=== PATIENT | female | born 1985 | race African-American/Black ===

== ENCOUNTER 2018-08-28 11:25 | Inpatient (IN) | payer OTHER ==
[2018-08-28] MEDS: DEXTROSE 5%-LACTATED RINGERS 1,000 ML IV SCH (12:45)
[2018-08-28 12:59] LABS: BASO % 0.4 % (0-2.0); EOS % 0.2 % (0-4.5); HEMATOCRIT 39.2 % (32.4-45.2); LYMPH % 19.7 % (8-40); MCH 29.6 pg (25.7-33.7); MCHC 33.3 g/dl (32.0-36.0); MEAN PLT VOLUME 9.8 fl (7.5-11.1); MONO % 5.3 % (3.8-10.2); NEUT % 74.4 % (42.8-82.8); PLATELET COUNT 242 K/MM3 (134-434); RBC 4.41 M/mm3 (3.60-5.2); RDW 13.8 % (11.6-15.6); RETICULOCYTES 1.93 % (0.5-1.5); WHITE BLOOD COUNT 13.4 K/mm3 (4.0-10.0)
[2018-08-28 13:07] LABS: INR 0.93 (0.83-1.09)
[2018-08-28 13:10] LABS: ACTIVATED PTT 25.5 SECONDS (25.2-36.5)
[2018-08-28 13:19] LABS: ALBUMIN 3.3 g/dl (3.4-5.0); ALK PHOS 179 U/L (45-117); ANION GAP 9 MMOL/L (8-16); BILIRUBIN,TOTAL 0.8 mg/dL (0.2-1); BLOOD UREA NITROGEN 13 mg/dL (7-18); CALCIUM 9.7 mg/dL (8.5-10.1); CHLORIDE 104 mmol/L (98-107); CO2 22 mmol/L (21-32); CREATININE 0.9 mg/dL (0.55-1.3); GAMMA GLUTAMYL TRANSPEPTIDASE 17 U/L (5-85); GLUCOSE,RANDOM 63 mg/dL (74-106); POTASSIUM 4.4 mmol/L (3.5-5.1); SGOT/AST 23 U/L (15-37); SGPT/ALT 22 U/L (13-61); SODIUM 135 mmol/L (136-145); TOT PROT 7.6 g/dl (6.4-8.2); URIC ACID 5.3 mg/dL (2.6-7.2)
[2018-08-28] MEDS ORDERED: LABETALOL HCL 5 MG/1 ML (100MG/20 ML VIAL) IVPB ONE (13:45)
[2018-08-28 13:54] LABS: URINE APPEARANCE CLEAR; URINE BILIRUBIN NEGATIVE (<2.0 mg/dL); URINE COLOR YELLOW; URINE GLUCOSE (UA) NEGATIVE (NEGATIVE); URINE KETONE 2+ (NEGATIVE); URINE LEUK ESTERASE NEGATIVE (NEGATIVE); URINE NITRITE NEGATIVE (NEGATIVE); URINE PROTEIN 1+ (NEGATIVE); URINE UROBILINOGEN NEGATIVE mg/dL (0.2-1.0)
[2018-08-28 13:59] LABS: EPI CELLS RARE /HPF (FEW); URINE MUCUS RARE
[2018-08-28] MEDS ORDERED: LABETALOL HCL 200 MG TABLET (FP) ONE (15:08)
[2018-08-28] MEDS ORDERED: LABETALOL HCL 200 MG TABLET (FP) PO ONE (16:00)
[2018-08-28] MEDS ORDERED: BUTORPHANOL TARTRATE 1 MG/ML VIAL IVPUSH ONE ×2 (16:24→22:41)
[2018-08-28 16:25] VITALS: BMI 24.7
[2018-08-28] MEDS ORDERED: PROMETHAZINE HCL 25 MG/1 ML VIAL IVPUSH ONE (16:26)
--- NOTE | 2018-08-28 16:35 | HP ---
Past Medical History - Primary Care Physician PCP:: Pedro Rivas - Admission Chief Complaint: 40 weeks, early labor, CHT History Source: Patient Limitations to Obtaining History: No Limitations - Past Medical History ...: 1 ...Para: 0 ...Term: 0 ...: 0 ...Spon : 0 ...Induced : 0 ...Multiple Gestation: 0 ...LMP: 11/16/17 ... Weeks Gestation by Dates: 40.5 ...EDC by Dates: 08/23/18 ...EDC by Sono: 08/30/18 - Past Surgical History Hx Myomectomy: No Hx Transabdominal Cerclage: No - Smoking History Smoking history: Never smoked Have you smoked in the past 12 months: No - Alcohol/Substance Use Hx Alcohol Use: No - Social History Usual Living Arrangement: Yes: With Spouse History of Recent Travel: No Home Medications - Allergies Allergies/Adverse Reactions: Allergies Allergy/AdvReac Type Severity Reaction Status Date / Time bee venom protein (honey bee) Allergy Verified 08/28/18 12:57 - Home Medications Home Medications: Ambulatory Orders Labetalol HCl [Normodyne -] 100 mg PO BID 08/28/18 Vitamins (Sjr) - 1 tab PO DAILY 08/28/18 Review of Systems - Review of Systems Constitutional: reports: No Symptoms Eyes: reports: No Symptoms HENT: reports: No Symptoms Neck: reports: No Symptoms Cardiovascular: reports: No Symptoms Respiratory: reports: No Symptoms Gastrointestinal: reports: No Symptoms Genitourinary: reports: No Symptoms Breasts: reports: No Symptoms Reported Musculoskeletal: reports: No Symptoms Integumentary: reports: No Symptoms Neurological: reports: No Symptoms Endocrine: reports: No Symptoms Hematology/Lymphatic: reports: No Symptoms Psychiatric: reports: No Symptoms Physical Exam - Maternity Vital Signs: Vital Signs Temperature 98.3 F 08/28/18 12:00 Pulse Rate 73 08/28/18 16:00 Respiratory Rate 20 08/28/18 16:00 Blood Pressure 136/84 08/28/18 16:00 O2 Sat by Pulse Oximetry (%) Constitutional: Yes: Well Nourished, No Distress, Calm Eyes: Yes: WNL, Conjunctiva Clear, EOM Intact HENT: Yes: WNL, Atraumatic, Normocephalic Neck: Yes: WNL, Supple, Trachea Midline Cardiovascular: Yes: WNL, Regular Rate and Rhythm Breast(s): Yes: WNL - Abdominal Exam/OB Fundal Height: 38 Number of Fetuses: Single Presentation: Vertex Contractions: Yes Regularity: Irregular Intensity: Mod/Strong Monitor Mode: External Heart Rate Location: [facility] Category: I Accelerations: Uniform Decelerations: None - Vaginal Exam/OB Vaginal Bleediing: No Speculum Exam: No Dilatation (cm): closed Effacement (%): 50 Amniotic Membrane Status: Intact Presentation: Vertex/Position Station: -3 - Physical Exam Musculoskeletal: Yes: WNL Edema: LLE: Trace, RLE: Trace Deep Tendon Reflex Grade: Normal +2 ...Motor Strength: WNL Psychiatric: Yes: WNL - Labs Lab Results: CBC, BMP 08/28/18 12:23 08/28/18 12:23 Hemorrhage Risk Assessment - Risk Factors High Risk Factors: Yes: None Risk Score: 0 Risk Level: Low Risk Problem List - Problems (1) 40 weeks gestation of Code(s): Z3A.40 - 40 WEEKS GESTATION OF (2) Chronic hypertension affecting Code(s): O10.919 - UNSP PRE-EXISTING HTN COMP , UNSP TRIMESTER (3) First stage of labor established Code(s): [id number] - Assessment/Plan plan admit,monitor BP, r/o superimposed PIH uncontrolled htn, patient has not been taking her labeatalol for serval days, tx HTN with iv labetalol PRN, if not in labor will induce in view of uncontrolled HTN
[2018-08-28] MEDS ORDERED: TUBERCULIN PPD 5 TU/0.1ML SYRINGE (IN PATIENT USE ONLY) ID ONE (16:45)
--- NOTE | 2018-08-28 17:57 | PN ---
Progress Note (short form) - Note Progress Note: BP 134/88, c/o contraction, no headache, blurred vision plan cont, monitor BP , when stable will starat pitocin risks discussed , ulternatives c/s discussed Problem List - Problems (1) 40 weeks gestation of Code(s): Z3A.40 - 40 WEEKS GESTATION OF (2) Chronic hypertension affecting Code(s): O10.919 - UNSP PRE-EXISTING HTN COMP , UNSP TRIMESTER (3) First stage of labor established Code(s): [id number] -
[2018-08-28] MEDS ORDERED: BUTORPHANOL TARTRATE 1 MG/ML VIAL ONE (18:03)
[2018-08-28] MEDS ORDERED: PROMETHAZINE HCL 25 MG/1 ML VIAL ONE (18:04)
[2018-08-28] MEDS ORDERED: LABETALOL HCL 200 MG TABLET (FP) PO SCH (22:00)
[2018-08-28] MEDS ORDERED: DINOPROSTONE 10 MG VAGINAL SUPPOSITORY VG ONE (22:39)
--- NOTE | 2018-08-28 22:39 | PN ---
Progress Note (short form) - Note Progress Note: bp 140/94 , asymptomatic , irregular contraction, cx 1 cm 70 vx -2 mi, fhr cat 1 , cervidil discussed , risks and benefit explained , agreed to have cervidil cervidil inserted Problem List - Problems (1) 40 weeks gestation of Code(s): Z3A.40 - 40 WEEKS GESTATION OF (2) Chronic hypertension affecting Code(s): O10.919 - UNSP PRE-EXISTING HTN COMP , UNSP TRIMESTER (3) First stage of labor established Code(s): [id number] -
[2018-08-28] MEDS ORDERED: PROMETHAZINE HCL 25 MG/1 ML VIAL IVPB ONE (22:41)
[2018-08-28] MEDS ORDERED: AMPICILLIN - 2 GM in SODIUM CHLORIDE 100 ML IVPB ONE (22:42)
--- NOTE | 2018-08-28 23:54 | PN ---
Progress Note (short form) - Note Progress Note: has variable dece with each contraction, cervidil removed , advised c/s rba discussed Problem List - Problems (1) 40 weeks gestation of Code(s): Z3A.40 - 40 WEEKS GESTATION OF (2) Chronic hypertension affecting Code(s): O10.919 - UNSP PRE-EXISTING HTN COMP , UNSP TRIMESTER (3) First stage of labor established Code(s): [id number] -
[2018-08-29] MEDS ORDERED: ONDANSETRON 4 MG/2 ML VIAL IVPUSH PRN (00:05)
[2018-08-29] MEDS ORDERED: morphine SULFATE/Preservative Free 0.5 MG/ML (1cc Syringe) ONE (00:11)
[2018-08-29] MEDS ORDERED: ceFAZolin SODIUM 1 GM VIAL ONE (00:17)
[2018-08-29] MEDS ORDERED: SODIUM CHLORIDE 0.9% P/F 10 ML VIAL IJ ONE (00:17)
[2018-08-29] MEDS ORDERED: KETOROLAC TROMETHAMINE 30 MG/1 ML VIAL ONE (00:18)
[2018-08-29] MEDS ORDERED: METHYLERGONOVINE MALEATE 0.2 MG/1 ML AMP IM PRN ×2 (00:28→23:21)
[2018-08-29] MEDS ORDERED: oxyCODONE HCL 5 MG TABLET PO PRN ×2 (00:28)
[2018-08-29] MEDS ORDERED: IBUPROFEN 600 MG TABLET (FP) PO PRN (00:28)
[2018-08-29] MEDS ORDERED: IBUPROFEN 800 MG/8 ML IJ IVPB PRN (00:28)
[2018-08-29] MEDS ORDERED: WITCH HAZEL 50% (TUCKS) 40 PAD/JAR PAD TP PRN (00:28)
[2018-08-29] MEDS ORDERED: SIMETHICONE 80 MG TAB.CHEW (FP) PO PRN (00:28)
[2018-08-29] MEDS ORDERED: BENZOCAINE 28 GM HEMORRHOIDAL OINTMENT PR PRN (00:28)
[2018-08-29] MEDS ORDERED: diphenhydrAMINE HCL 25 MG CAPSULE (FP) PO PRN (00:28)
[2018-08-29] MEDS ORDERED: BENZOCAINE 20% 57 GM BOTTLE TP PRN (00:28)
[2018-08-29] MEDS ORDERED: OXYTOCIN 10 UNITS/ML VIAL ONE (00:29)
[2018-08-29] MEDS ORDERED: OXYTOCIN 20 UNITS in 0.9% NS 20 UNIT/1,000 ML INFUS.BAG IV SCH (00:30)
[2018-08-29] MEDS ORDERED: DEXTROSE 5%-LACTATED RINGERS 1,000 ML IV SCH (00:30)
[2018-08-29] MEDS ORDERED: CEFAZOLIN 1 GM/D5W 50 ML IVPB SCH (02:00)
[2018-08-29] MEDS ORDERED: OXYTOCIN 20 UNITS in 0.9% NS 20 UNIT/1,000 ML INFUS.BAG IV ONE (02:17)
[2018-08-29] MEDS ORDERED: AMPICILLIN - 1 GM in SODIUM CHLORIDE 100 ML IVPB SCH (03:45)
[2018-08-29] MEDS: LABETALOL HCL 200 MG TABLET (FP) PO SCH ×3 (06:13→22:07)
[2018-08-29] MEDS: DEXTROSE 5%-LACTATED RINGERS 1,000 ML IV SCH ×2 (07:43→15:52)
--- NOTE | 2018-08-29 07:46 | OP ---
Operative Note - Note: Operative Date: 08/29/18 Pre-Operative Diagnosis: CHT, uncontrolled, fhr cat 2 tracing Operation: primary LST c/s Findings: live baby boy, RROT, cord around neck times 3, 8/9 Surgeon: Pedro Rivas Anesthesia: Spinal Specimens Removed: placenta Estimated Blood Loss (mls): 500 Operative Report Dictated: Yes
[2018-08-29] MEDS ORDERED: BENZOCAINE 28 GM HEMORRHOIDAL OINTMENT TP PRN (14:24)
[2018-08-29] MEDS: ACETAMINOPHEN 1000 MG/100 ML VIAL (NON FORMULARY) IVPB PRN ×2 (16:33→22:08)
--- NOTE | 2018-08-29 16:49 | CIRC ---
Circumcision Note Pediatric Clearance: Yes Surgeon: Pedro Rivas Informed Consent: Yes Instruments: 1.1 Gumco Local Anesthesia: Lidocaine 1% 1cc subcutaneously: Yes Complications: None Intervention: None Estimated Blood Loss (mLs): 1 Specimens Removed: foreskin Post-procedure diagnosis: Post Circumcision
--- NOTE | 2018-08-29 21:29 | OP ---
DATE OF OPERATION: 08/29/2018 PREOPERATIVE DIAGNOSES: , 38 weeks; chronic hypertensive, uncontrolled; Cervidil induction; and persistent variable decelerations and nonreassuring heart rate. POSTOPERATIVE DIAGNOSES: , 38 weeks; chronic hypertensive, uncontrolled; Cervidil induction; and persistent variable decelerations and nonreassuring heart rate. PROCEDURE: Primary low-segment transverse section. SURGEON: Aura Rivas MD POISER BALANCE: TANNA Macias ANESTHESIA: Spinal. ANESTHESIOLOGIST: LUISANA Carlton ESTIMATED BLOOD LOSS: 500 mL FINDING: A live baby boy, ROT position, cord around the neck x3, Apgars 8 and 9. OPERATING COURSE: Patient was taken to the operating room. Under adequate spinal anesthesia, abdomen and perineum were prepped and draped. Pfannenstiel abdominal skin incision was made. Abdominal wall was cut layer by layer until peritoneum was exposed and incised. Upon entering the abdominal cavity, the lower uterine segment was identified and uterovesical fold of peritoneum established. Bladder was pushed down. Then, with the lower blade of the Octavia retractor in the pelvis, a low transverse uterine incision was made. Incision extended laterally. Amniotic sac was entered, clear fluid. Head delivered. Nasopharynx was suctioned. There was a tight cord around the neck x3, which was reduced prior to delivery of the baby's shoulder. A live baby boy was delivered without any difficulty. Placenta was delivered manually. Then, the uterine cavity was cleaned of all remaining tissues. Uterine incision was closed in 3 layers, first layer with 0 Vicryl continuous suture, the second layer with 0 Biosyn continuous suture, imbricating the first layer. Bladder flap was closed with 0 Biosyn continuous suture. Both tubes and ovaries were checked, were normal. No active bleeding was seen. All the lap packs, sponge, and instrument counts were correct. Then, peritoneum was closed with 0 Biosyn continuous suture. Muscles were brought together with interrupted suture of 0 Biosyn. Fascia was closed with 0 Biosyn continuous suture, subcutaneous fat with interrupted suture of 0 Biosyn, and the skin was closed with 4-0 Biosyn continuous suture. Patient tolerated the procedure well, left the OR in good condition. AURA RIVAS M.D. [id number]
[2018-08-30] MEDS ORDERED: BISACODYL 10 MG SUPP.RECT PR PRN (00:28)
[2018-08-30] MEDS: LABETALOL HCL 200 MG TABLET (FP) PO SCH ×3 (05:54→22:29)
[2018-08-30] MEDS: ACETAMINOPHEN 325 MG TABLET (FP) PO PRN ×5 (05:54→22:29)
[2018-08-30] MEDS: SIMETHICONE 80 MG TAB.CHEW (FP) PO PRN ×5 (05:54→22:29)
[2018-08-30] MEDS: oxyCODONE HCL 5 MG TABLET PO PRN ×5 (05:55→22:30)
[2018-08-30] MEDS ORDERED: BENZOCAINE 20% 57 GM BOTTLE TP PRN (07:35)
[2018-08-30 07:42] LABS: BASO % 0.5 % (0-2.0); EOS % 0.3 % (0-4.5); HEMATOCRIT 29.4 % (32.4-45.2); HEMOGLOBIN 9.8 GM/dL (10.7-15.3); LYMPH % 14.8 % (8-40); MCH 29.7 pg (25.7-33.7); MCHC 33.2 g/dl (32.0-36.0); MEAN CELL VOLUME 89.5 fl (80-96); MEAN PLT VOLUME 8.9 fl (7.5-11.1); MONO % 5.2 % (3.8-10.2); NEUT % 79.2 % (42.8-82.8); PLATELET COUNT 176 K/MM3 (134-434); RBC 3.29 M/mm3 (3.60-5.2); RDW 13.8 % (11.6-15.6); WHITE BLOOD COUNT 17.8 K/mm3 (4.0-10.0)
[2018-08-30] MEDS: PHENYLEPH/MINERAL OIL/PETROLAT 28 GM OINTMENT RC SCH ×2 (07:49→22:35)
[2018-08-30] MEDS: ENOXAPARIN NA (PORCINE) 40 MG/0.4 ML DISP.SYRIN SQ SCH (09:55)
--- NOTE | 2018-08-30 11:02 | PN ---
Post Progress Note - Subjective Subjective: Patient Reports tolerating oral intake without nausea or vomiting. Ambulating without dizziness. Denies fevers or chills. Pain well controlled with oral pain medication. without difficulty. Passing flatus c/o severely enlarged and painful hemorrhoids. Post Day: 1 Type of Delivery: Primary C/S Vital Signs: Vital Signs Temperature 97.9 F 08/30/18 10:00 Pulse Rate 83 08/30/18 10:00 Respiratory Rate 18 08/30/18 10:00 Blood Pressure 115/64 08/30/18 10:00 O2 Sat by Pulse Oximetry (%) 100 08/29/18 04:00 Breast Exam: Yes: Soft Uterus: Yes: Fundus Firm, Fundus @ umbilicus Incision: Yes: Sutures intact Abdomen/GI: Yes: Abdomen soft Lochia: Yes: Rubra Lochia, amount: Small Perineum: Yes: Intact (Severely enlarged hemorrhoids) Activity: Other (resting due to hemorrhoid discomfort) - Labs Labs: CBC WBC 17.8 K/mm3 (4.0-10.0) H 08/30/18 07:15 RBC 3.29 M/mm3 (3.60-5.2) L 08/30/18 07:15 Hgb 9.8 GM/dL (10.7-15.3) L 08/30/18 07:15 Hct 29.4 % (32.4-45.2) L D 08/30/18 07:15 MCV 89.5 fl (80-96) 08/30/18 07:15 MCH 29.7 pg (25.7-33.7) 08/30/18 07:15 MCHC 33.2 g/dl (32.0-36.0) 08/30/18 07:15 RDW 13.8 % (11.6-15.6) 08/30/18 07:15 Plt Count 176 K/MM3 (134-434) D 08/30/18 07:15 MPV 8.9 fl (7.5-11.1) 08/30/18 07:15 Absolute Neuts (auto) 14.1 K/mm3 (1.5-8.0) H 08/30/18 07:15 Neutrophils % 79.2 % (42.8-82.8) 08/30/18 07:15 Lymphocytes % 14.8 % (8-40) D 08/30/18 07:15 Monocytes % 5.2 % (3.8-10.2) 08/30/18 07:15 Eosinophils % 0.3 % (0-4.5) 08/30/18 07:15 Basophils % 0.5 % (0-2.0) 08/30/18 07:15 Nucleated RBC % 0 % (0-0) 08/30/18 07:15 Retic Count 1.93 % (0.5-1.5) H 08/28/18 12:23 Haptoglobin 88 mg/dL (34-200) 08/28/18 12:23 Assessment/Plan Patient without acute complaints, except for hemorrhoidal pain Reports tolerating oral intake without nausea or vomiting. Ambulating without dizziness. Denies fevers or chills. Pain well controlled with oral pain medication. without difficulty. Passing flatus. Continue routine care Will repeat CBC 08/31/18
--- NOTE | 2018-08-30 11:19 | PN ---
Progress Note, Physician Chief Complaint: s/p c section post op day one History of Present Illness: spinal anesthesia with duramorph for post op pain - Current Medication List Current Medications: Active Medications Acetaminophen (Tylenol -) 650 mg PO Q4H PRN PRN Reason: PAIN LEVEL 1-5 Last Admin: 08/30/18 10:34 Dose: 650 mg Benzocaine (Americaine Ointment -) 1 applic TP PRN PRN PRN Reason: HEMORRHOIDS Last Admin: 08/29/18 15:52 Dose: 1 applic Benzocaine (Americaine 20% [place] -) 1 spray TP PRN PRN PRN Reason: HEMORRHOIDS/PERIANAL PAIN Last Admin: 08/30/18 07:48 Dose: 1 spray Bisacodyl (Dulcolax Suppository -) 10 mg RC PRN PRN PRN Reason: CONSTIPATION Docusate Sodium (Colace -) 100 mg PO BID YAAKOV Enoxaparin Sodium (Lovenox -) 40 mg SQ DAILY [facility] Last Admin: 08/30/18 09:55 Dose: 40 mg Hydrocortisone (Anusol 2.5% Hc Cream -) 1 applic TP BID YAAKOV Ibuprofen (Motrin -) 600 mg PO Q4H PRN PRN Reason: PAIN LEVEL 1 - 3 Labetalol HCl (Normodyne -) 200 mg PO TID [facility] Last Admin: 08/30/18 05:54 Dose: 200 mg Lidocaine HCl (Xylocaine 2% Jelly) 1 applic TP Q6H PRN PRN Reason: HEMORRHOIDS Methylergonovine Maleate (Methergine Injection -) 0.2 mg IM Q4H PRN PRN Reason: Excessive Bleeding (L&D) Oxycodone HCl (Roxicodone -) 5 mg PO Q4H PRN PRN Reason: PAIN LEVEL 4 - 6 Last Admin: 08/30/18 10:35 Dose: 5 mg Simethicone (Mylicon -) 80 mg PO Q4H PRN PRN Reason: GAS Last Admin: 08/30/18 10:35 Dose: 80 mg - Objective Vital Signs: Vital Signs Temperature 97.9 F 08/30/18 10:00 Pulse Rate 83 08/30/18 10:00 Respiratory Rate 18 08/30/18 10:00 Blood Pressure 115/64 08/30/18 10:00 O2 Sat by Pulse Oximetry (%) 100 08/29/18 04:00 Constitutional: Yes: Well Nourished Cardiovascular: Yes: WNL Respiratory: Yes: WNL Gastrointestinal: Yes: WNL Labs: CBC, BMP 08/30/18 07:15 08/28/18 12:23 INR, PTT INR 0.93 (0.83-1.09) 08/28/18 12:23 Assessment/Plan no adverse effect from anesthetic, no headache nausea or vomiting, pain controlled, dept of anesthesia will sign off care at this time
[2018-08-30] MEDS: HYDROCORTISONE 2.5% TOPICAL CREAM 30 GM TUBE TP SCH ×2 (13:19→21:17)
[2018-08-30] MEDS: LIDOCAINE HCL 2% JELLY (5 ML/TUBE) TP PRN ×2 (13:20→19:49)
[2018-08-30] MEDS: SENNOSIDES 8.6MG TABLET (FP) PO PRN (22:29)
[2018-08-30] MEDS: DOCUSATE SODIUM 100 MG CAPSULE (FP) PO SCH (22:29)
[2018-08-30] MEDS ORDERED: BISACODYL 10 MG SUPP.RECT RC PRN (23:22)
[2018-08-31] MEDS: SIMETHICONE 80 MG TAB.CHEW (FP) PO PRN ×5 (02:05→18:17)
[2018-08-31] MEDS: ACETAMINOPHEN 325 MG TABLET (FP) PO PRN ×4 (02:05→13:38)
[2018-08-31] MEDS: LIDOCAINE HCL 2% JELLY (5 ML/TUBE) TP PRN ×3 (02:05→21:27)
[2018-08-31] MEDS: oxyCODONE HCL 5 MG TABLET PO PRN ×5 (02:06→18:17)
[2018-08-31] MEDS: LABETALOL HCL 200 MG TABLET (FP) PO SCH (05:59)
--- NOTE | 2018-08-31 07:51 | PN ---
Post Progress Note - Subjective Subjective: Pt with large hemorrhoids, o/w no complaints Post Day: 2 Type of Delivery: Primary C/S Vital Signs: Vital Signs Temperature 97.8 F 08/30/18 22:00 Pulse Rate 67 08/31/18 06:00 Respiratory Rate 18 08/30/18 22:00 Blood Pressure 166/107 H 08/31/18 06:00 O2 Sat by Pulse Oximetry (%) 100 08/29/18 04:00 Breast Exam: Yes: Soft Uterus: Yes: Fundus Firm, Fundus below umbilicus Incision: Yes: Dressing dry and intact Abdomen/GI: Yes: Abdomen soft Lochia: Yes: Rubra Lochia, amount: Small Extremities: Yes: Calves non-tender Perineum: Yes: Intact Activity: Ambulating - Labs Labs: CBC WBC 17.8 K/mm3 (4.0-10.0) H 08/30/18 07:15 RBC 3.29 M/mm3 (3.60-5.2) L 08/30/18 07:15 Hgb 9.8 GM/dL (10.7-15.3) L 08/30/18 07:15 Hct 29.4 % (32.4-45.2) L D 08/30/18 07:15 MCV 89.5 fl (80-96) 08/30/18 07:15 MCH 29.7 pg (25.7-33.7) 08/30/18 07:15 MCHC 33.2 g/dl (32.0-36.0) 08/30/18 07:15 RDW 13.8 % (11.6-15.6) 08/30/18 07:15 Plt Count 176 K/MM3 (134-434) D 08/30/18 07:15 MPV 8.9 fl (7.5-11.1) 08/30/18 07:15 Absolute Neuts (auto) 14.1 K/mm3 (1.5-8.0) H 08/30/18 07:15 Neutrophils % 79.2 % (42.8-82.8) 08/30/18 07:15 Lymphocytes % 14.8 % (8-40) D 08/30/18 07:15 Monocytes % 5.2 % (3.8-10.2) 08/30/18 07:15 Eosinophils % 0.3 % (0-4.5) 08/30/18 07:15 Basophils % 0.5 % (0-2.0) 08/30/18 07:15 Nucleated RBC % 0 % (0-0) 08/30/18 07:15 Retic Count 1.93 % (0.5-1.5) H 08/28/18 12:23 Haptoglobin 88 mg/dL (34-200) 08/28/18 12:23 Assessment/Plan POD#2 s/p repeat LTC/S doing well, stable, afebrile. BP is high. Pt is asymptomatic and chronic hypertensive. Plan to check labs. Asymptomatic for anemia. Continue stool softeners. Post op care reviewed. Continue routine care. Ambulation encouraged Advance diet as tolerated.
[2018-08-31 09:06] LABS: BASO % 0.5 % (0-2.0); HEMATOCRIT 33.4 % (32.4-45.2); HEMOGLOBIN 11.2 GM/dL (10.7-15.3); MCH 30.1 pg (25.7-33.7); MCHC 33.4 g/dl (32.0-36.0); MEAN PLT VOLUME 9.1 fl (7.5-11.1); MONO % 5.5 % (3.8-10.2); PLATELET COUNT 226 K/MM3 (134-434); RBC 3.71 M/mm3 (3.60-5.2)
[2018-08-31 09:34] LABS: ALBUMIN 2.7 g/dl (3.4-5.0); ALK PHOS 120 U/L (45-117); ANION GAP 7 MMOL/L (8-16); BILIRUBIN,TOTAL 0.4 mg/dL (0.2-1); BLOOD UREA NITROGEN 13 mg/dL (7-18); CALCIUM 8.8 mg/dL (8.5-10.1); CHLORIDE 106 mmol/L (98-107); CO2 25 mmol/L (21-32); CREATININE 0.7 mg/dL (0.55-1.3); GLUCOSE,RANDOM 69 mg/dL (74-106); POTASSIUM 3.8 mmol/L (3.5-5.1); SGOT/AST 36 U/L (15-37); SGPT/ALT 25 U/L (13-61); SODIUM 138 mmol/L (136-145); TOT PROT 6.4 g/dl (6.4-8.2); URIC ACID 5.3 mg/dL (2.6-7.2)
[2018-08-31] MEDS: ENOXAPARIN NA (PORCINE) 40 MG/0.4 ML DISP.SYRIN SQ SCH (09:35)
[2018-08-31] MEDS: DOCUSATE SODIUM 100 MG CAPSULE (FP) PO SCH ×2 (09:42→21:25)
[2018-08-31] MEDS: HYDROCORTISONE 2.5% TOPICAL CREAM 30 GM TUBE TP SCH ×2 (09:43→21:27)
[2018-08-31] MEDS: PHENYLEPH/MINERAL OIL/PETROLAT 28 GM OINTMENT RC SCH ×2 (09:51→21:28)
--- NOTE | 2018-08-31 13:15 | CONSULT ---
Consult - text type - Consultation Consultation Note: Renal consult for hypertension This is a 33 year old AA woman with hx of hypertension since age 26 who is s/p C -section with elevated BP. Pt was on Labetalol during . Was previoulsy on Nifedpine 60mg ER and HCTZ prior to . Home Medications Medication Instructions Recorded Labetalol HCl [Normodyne -] 100 mg PO BID 08/28/18 Vitamins (Sjr) - 1 tab PO DAILY 08/28/18 Vital Signs Temperature 97.8 F 08/31/18 08:24 Pulse Rate 65 08/31/18 08:27 Respiratory Rate 18 08/31/18 08:27 Blood Pressure 129/98 08/31/18 08:27 O2 Sat by Pulse Oximetry (%) 100 08/29/18 04:00 Intake & Output 08/28/18 08/29/18 08/30/18 08/31/18 23:59 23:59 23:59 23:59 Intake Total 1200 500 Output Total 2 1851 550 Balance 1198 -1351 -550 Weight 59.421 kg CBC, BMP 08/31/18 08:55 08/31/18 08:55 Current Medications Acetaminophen (Tylenol -) 650 mg PO Q4H PRN PRN Reason: PAIN LEVEL 1-5 Last Admin: 08/31/18 09:39 Dose: 650 mg Benzocaine (Americaine Ointment -) 1 applic TP PRN PRN PRN Reason: HEMORRHOIDS Last Admin: 08/29/18 15:52 Dose: 1 applic Benzocaine (Americaine 20% [place] -) 1 spray TP PRN PRN PRN Reason: HEMORRHOIDS/PERIANAL PAIN Last Admin: 08/30/18 07:48 Dose: 1 spray Bisacodyl (Dulcolax Suppository -) 10 mg RC PRN PRN PRN Reason: CONSTIPATION Docusate Sodium (Colace -) 100 mg PO BID [facility] Last Admin: 08/31/18 09:42 Dose: 100 mg Enoxaparin Sodium (Lovenox -) 40 mg SQ DAILY [facility] Last Admin: 08/31/18 09:35 Dose: 40 mg Hydrocortisone (Anusol 2.5% Hc Cream -) 1 applic TP BID [facility] Last Admin: 08/31/18 09:43 Dose: 1 applic Ibuprofen (Motrin -) 600 mg PO Q4H PRN PRN Reason: PAIN LEVEL 1 - 3 Labetalol HCl (Normodyne -) 200 mg PO TID YAAKOV Last Admin: 08/31/18 05:59 Dose: 200 mg Lidocaine HCl (Xylocaine 2% Jelly) 1 applic TP Q6H PRN PRN Reason: HEMORRHOIDS Last Admin: 08/31/18 09:44 Dose: 1 applic Methylergonovine Maleate (Methergine Injection -) 0.2 mg IM Q4H PRN PRN Reason: Excessive Bleeding (L&D) Oxycodone HCl (Roxicodone -) 5 mg PO Q4H PRN PRN Reason: PAIN LEVEL 4 - 6 Last Admin: 08/31/18 09:41 Dose: 5 mg Senna (Senna -) 2 tab PO HS PRN PRN Reason: CONSTIPATION Last Admin: 08/30/18 22:29 Dose: 2 tab Simethicone (Mylicon -) 80 mg PO Q4H PRN PRN Reason: GAS Last Admin: 08/31/18 09:37 Dose: 80 mg # hypertension likely due to pre-eclampsia #Essential Hypertension # s/p Will plan to resume Nifedpine ER 30mg starting today continue Labetalol 200mg Q6h PRN fo SBP > 160 or DBP > 100 Pain control low salt diet Renal function is normal, LFT's and plt counts are normal check urine protein to Cr retio Thank you Full consult to follow Irineo Osorio DO
[2018-08-31] MEDS ORDERED: LABETALOL HCL 200 MG TABLET (FP) PO PRN (13:16)
[2018-08-31] MEDS: NIFEdipine E.R. 30 MG TABLET (FP) PO SCH (13:36)
[2018-08-31 18:00] LABS: URINE APPEARANCE SLCLOUDY; URINE BILIRUBIN NEGATIVE (<2.0 mg/dL); URINE COLOR LTYELLOW; URINE GLUCOSE (UA) NEGATIVE (NEGATIVE); URINE KETONE NEGATIVE (NEGATIVE); URINE LEUK ESTERASE 3+ (NEGATIVE); URINE NITRITE NEGATIVE (NEGATIVE); URINE PROTEIN NEGATIVE (NEGATIVE); URINE UROBILINOGEN NEGATIVE mg/dL (0.2-1.0)
[2018-08-31] MEDS: IBUPROFEN 600 MG TABLET (FP) PO PRN (18:16)
[2018-08-31 18:40] LABS: EPI CELLS FEW /HPF (FEW); URINE BACTERIA RARE /hpf (NONE SEEN); URINE MUCUS RARE
[2018-08-31] MEDS: SENNOSIDES 8.6MG TABLET (FP) PO PRN (21:25)
[2018-08-31] MEDS ORDERED: SENNOSIDES/DOCUSATE COMBO (SENNA PLUS) TABLET (UD) PO PRN (22:00)
--- NOTE | 2018-09-01 01:12 | PN ---
Post Progress Note - Subjective Subjective: Patient reports severe discomfort with hemorrhoids. Had BM today, was not constipated Reports tolerating oral intake without nausea or vomiting. Ambulating without dizziness. Denies fevers or chills. Pain well controlled with oral pain medication. without difficulty. Passing flatus. Post Day: 3 Type of Delivery: Primary C/S Vital Signs: Vital Signs Temperature 98.5 F 08/31/18 21:54 Pulse Rate 72 08/31/18 21:54 Respiratory Rate 18 08/31/18 21:54 Blood Pressure 156/103 H 08/31/18 21:54 O2 Sat by Pulse Oximetry (%) 100 08/29/18 04:00 Breast Exam: Yes: Soft Uterus: Yes: Fundus Firm, Fundus below umbilicus Incision: Yes: Sutures intact. No: Redness, Oozing Abdomen/GI: Yes: Abdomen soft, Abdominal Distention (mild soft), Tender (mild incisional), Passing flatus, Tolerating PO Lochia: Yes: Serosa Lochia, amount: Small Extremities: Yes: Calves non-tender. No: Edema Activity: Ambulating - Labs Labs: CBC WBC 12.0 K/mm3 (4.0-10.0) H 08/31/18 08:55 RBC 3.71 M/mm3 (3.60-5.2) 08/31/18 08:55 Hgb 11.2 GM/dL (10.7-15.3) 08/31/18 08:55 Hct 33.4 % (32.4-45.2) 08/31/18 08:55 MCV 90.0 fl (80-96) 08/31/18 08:55 MCH 30.1 pg (25.7-33.7) 08/31/18 08:55 MCHC 33.4 g/dl (32.0-36.0) 08/31/18 08:55 RDW 14.0 % (11.6-15.6) 08/31/18 08:55 Plt Count 226 K/MM3 (134-434) D 08/31/18 08:55 MPV 9.1 fl (7.5-11.1) 08/31/18 08:55 Absolute Neuts (auto) 8.4 K/mm3 (1.5-8.0) H 08/31/18 08:55 Neutrophils % 70.0 % (42.8-82.8) 08/31/18 08:55 Lymphocytes % 23.0 % (8-40) D 08/31/18 08:55 Monocytes % 5.5 % (3.8-10.2) 08/31/18 08:55 Eosinophils % 1.0 % (0-4.5) D 08/31/18 08:55 Basophils % 0.5 % (0-2.0) 08/31/18 08:55 Nucleated RBC % 0 % (0-0) 08/31/18 08:55 Retic Count 1.93 % (0.5-1.5) H 08/28/18 12:23 Haptoglobin 88 mg/dL (34-200) 08/28/18 12:23 Assessment/Plan 33 yo POD # 3 s/p CD, afebrile, vital signs stable, doing well 1. BP - s/p consult with Dr. Osorio - on Procardia and labetalol Denies s/sx PEC Will continue to monitor 2. Hemorrhoids - Will change to low residue diet, will continue colace, dulcolax , PRN 3. Continue routine postoperative care. 4. Encourage ambulation and incentive spirometer use 5. Continue oral pain medication 6. DC planning pending adequate BP control
[2018-09-01] MEDS ORDERED: FUROSEMIDE 20 MG TABLET (FP) PO ONE (08:00)
[2018-09-01 08:37] LABS: BASO % 0.2 % (0-2.0); EOS % 2.3 % (0-4.5); HEMATOCRIT 32.5 % (32.4-45.2); HEMOGLOBIN 10.6 GM/dL (10.7-15.3); LYMPH % 20.9 % (8-40); MCH 29.4 pg (25.7-33.7); MCHC 32.7 g/dl (32.0-36.0); MEAN CELL VOLUME 89.9 fl (80-96); MONO % 5.9 % (3.8-10.2); NEUT % 70.7 % (42.8-82.8); PLATELET COUNT 219 K/MM3 (134-434); RBC 3.61 M/mm3 (3.60-5.2); RDW 14.2 % (11.6-15.6); WHITE BLOOD COUNT 11.2 K/mm3 (4.0-10.0)
[2018-09-01] MEDS: HYDROCORTISONE 2.5% TOPICAL CREAM 30 GM TUBE TP SCH ×2 (10:00→21:38)
[2018-09-01] MEDS: PHENYLEPH/MINERAL OIL/PETROLAT 28 GM OINTMENT RC SCH ×2 (10:14→21:38)
[2018-09-01] MEDS: SIMETHICONE 80 MG TAB.CHEW (FP) PO PRN (10:17)
[2018-09-01] MEDS: NIFEdipine E.R. 30 MG TABLET (FP) PO SCH (10:17)
[2018-09-01] MEDS: ACETAMINOPHEN 325 MG TABLET (FP) PO PRN ×2 (10:17→21:33)
[2018-09-01] MEDS: DOCUSATE SODIUM 100 MG CAPSULE (FP) PO SCH ×2 (10:17→21:32)
[2018-09-01] MEDS: ENOXAPARIN NA (PORCINE) 40 MG/0.4 ML DISP.SYRIN SQ SCH (10:18)
[2018-09-01] MEDS: IBUPROFEN 600 MG TABLET (FP) PO PRN ×2 (10:18→21:36)
--- NOTE | 2018-09-01 14:46 | PN ---
Progress Note (short form) - Note Progress Note: Renal follow up for hypertension Pt seen and examined at the bedside no acute complaints received labetalol x 1 last night no ODELL, CP, sob, abd pain Vital Signs Temperature 98.1 F 09/01/18 09:17 Pulse Rate 79 09/01/18 09:17 Respiratory Rate 18 09/01/18 09:17 Blood Pressure 129/87 09/01/18 09:17 O2 Sat by Pulse Oximetry (%) 100 08/29/18 04:00 Intake & Output 08/29/18 08/30/18 08/31/18 09/01/18 23:59 23:59 23:59 23:59 Intake Total 500 Output Total 1851 550 Balance -1351 -550 NAD awake and alert Trace LE edema CBC, BMP 09/01/18 07:12 08/31/18 08:55 Current Medications Acetaminophen (Tylenol -) 650 mg PO Q4H PRN PRN Reason: PAIN LEVEL 1-5 Last Admin: 09/01/18 10:17 Dose: 650 mg Benzocaine (Americaine Ointment -) 1 applic TP PRN PRN PRN Reason: HEMORRHOIDS Last Admin: 08/29/18 15:52 Dose: 1 applic Benzocaine (Americaine 20% [place] -) 1 spray TP PRN PRN PRN Reason: HEMORRHOIDS/PERIANAL PAIN Last Admin: 08/30/18 07:48 Dose: 1 spray Bisacodyl (Dulcolax Suppository -) 10 mg RC PRN PRN PRN Reason: CONSTIPATION Docusate Sodium (Colace -) 100 mg PO BID [facility] Last Admin: 09/01/18 10:17 Dose: 100 mg Enoxaparin Sodium (Lovenox -) 40 mg SQ DAILY [facility] Last Admin: 09/01/18 10:18 Dose: 40 mg Hydrocortisone (Anusol 2.5% Hc Cream -) 1 applic TP BID [facility] Last Admin: 09/01/18 10:00 Dose: 1 applic Ibuprofen (Motrin -) 600 mg PO Q4H PRN PRN Reason: PAIN LEVEL 1 - 3 Last Admin: 09/01/18 10:18 Dose: 600 mg Labetalol HCl (Normodyne -) 200 mg PO Q6H PRN PRN Reason: HYPERTENSION Last Admin: 08/31/18 21:26 Dose: 200 mg Lidocaine HCl (Xylocaine 2% Jelly) 1 applic TP Q6H PRN PRN Reason: HEMORRHOIDS Last Admin: 08/31/18 21:27 Dose: 1 applic Methylergonovine Maleate (Methergine Injection -) 0.2 mg IM Q4H PRN PRN Reason: Excessive Bleeding (L&D) Nifedipine (Procardia Xl -) 30 mg PO DAILY YAAKOV Last Admin: 09/01/18 10:17 Dose: 30 mg Oxycodone HCl (Roxicodone -) 5 mg PO Q4H PRN PRN Reason: PAIN LEVEL 4 - 6 Last Admin: 08/31/18 18:17 Dose: 5 mg Senna (Senna -) 2 tab PO HS PRN PRN Reason: CONSTIPATION Last Admin: 08/31/18 21:25 Dose: 2 tab Simethicone (Mylicon -) 80 mg PO Q4H PRN PRN Reason: GAS Last Admin: 09/01/18 10:17 Dose: 80 mg 33 year old woman with history of hypertension with hypertension # hypertension likely due to pre-eclampsia #Essential Hypertension # s/p BP improved and stable continue Nifedpine ER 30mg daily if BP is high in evening will give additional dose of nifedpine ER continue labetalol as needed low salt diet pain control Irineo Osorio DO
[2018-09-01] MEDS: SENNOSIDES 8.6MG TABLET (FP) PO PRN (21:30)
[2018-09-01] MEDS: LIDOCAINE HCL 2% JELLY (5 ML/TUBE) TP PRN (21:36)
--- NOTE | 2018-09-02 07:17 | DS ---
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 Vital Signs: Vital Signs Temperature 98.6 F 09/01/18 22:00 Pulse Rate 81 09/01/18 22:00 Respiratory Rate 18 09/01/18 22:00 Blood Pressure 143/87 09/01/18 22:00 O2 Sat by Pulse Oximetry (%) 100 08/29/18 04:00 Constitutional: Yes: Well Nourished, No Distress, Calm Eyes: Yes: WNL, Conjunctiva Clear, EOM Intact HENT: Yes: WNL, Atraumatic, Normocephalic Neck: Yes: WNL, Supple, Trachea Midline Cardiovascular: Yes: WNL, Regular Rate and Rhythm Respiratory: Yes: WNL, Regular, CTA Bilaterally Gastrointestinal: Yes: WNL ...Rectal Exam: Yes: WNL Renal/: Yes: WNL External Genitalia: Yes: Normal ....Post : Yes: Uterus firm, Uterus non-tender, Slight lochia rubra Breast(s): Yes: WNL Musculoskeletal: Yes: WNL Extremities: Yes: WNL Integumentary: Yes: WNL Wound/Incision: Yes: Clean/Dry, Well Approximated, Sutures Intact Neurological: Yes: WNL, Alert, Oriented ...Motor Strength: WNL Psychiatric: Yes: WNL, Alert, Oriented Labs: CBC, BMP 09/01/18 07:12 08/31/18 08:55 Delivery - Delivery Section: Low Flap Transverse (no complication) Type of Anesthesia: Spinal EBL (cc): 500 Delivery, Single - Stages of Labor Date 1st Stage Initiatied: 08/28/18 Time 1st Stage Initiated: 06:00 Date of Delivery: 08/29/18 Time of Delivery: 00:41 Time Placenta Delivered: 00:43 Placenta: Yes: Expressed - Condition of Quality Audit Representative/Level Vial Inspector Present: Yes Name: Becky Escobar Infant Gender: Male Weight: 6 lb 5 oz Position: Right, OT Total Hours ROM (Hrs/Mins): 2m - 1 Minute Total Score: 9 10 Minutes Total Score: 9 - Feeding Plan Initial Plan: Exclusive throughout hospitalization Discharge Summary Reason For Visit: LABOR Current Active Problems 40 weeks gestation of (Acute) Chronic hypertension affecting (Acute) First stage of labor established (Acute) Procedures: Principal: primary LST c/s Condition: Good - Instructions Diet, Activity, Other Instructions: regular diet, follow up office 2 weeks, if fever, pain, heavy vaginal bleeding call md Referrals: Pedro Rivas MD [Staff Physician] - Disposition: HOME - Home Medications Comprehensive Discharge Medication List: Ambulatory Orders Labetalol HCl [Normodyne -] 100 mg PO BID 08/28/18 Vitamins (Sjr) - 1 tab PO DAILY 08/28/18 Ibuprofen [Motrin -] 600 mg PO QID #28 tablet 09/01/18
[2018-09-02 08:10] VITALS: BP 149/83; PULSE 71; TEMP 98.4
[2018-09-02] MEDS: PHENYLEPH/MINERAL OIL/PETROLAT 28 GM OINTMENT RC SCH (10:14)
[2018-09-02] MEDS: ENOXAPARIN NA (PORCINE) 40 MG/0.4 ML DISP.SYRIN SQ SCH (10:14)
[2018-09-02] MEDS: NIFEdipine E.R. 30 MG TABLET (FP) PO SCH (10:14)
[2018-09-02] MEDS: HYDROCORTISONE 2.5% TOPICAL CREAM 30 GM TUBE TP SCH (10:14)
[2018-09-02] MEDS: DOCUSATE SODIUM 100 MG CAPSULE (FP) PO SCH (10:14)
[2018-09-02] MEDS: SIMETHICONE 80 MG TAB.CHEW (FP) PO PRN (10:18)
[2018-09-02] MEDS: IBUPROFEN 600 MG TABLET (FP) PO PRN (10:18)
[2018-09-02] MEDS: ACETAMINOPHEN 325 MG TABLET (FP) PO PRN (10:19)
--- NOTE | 2018-09-02 11:33 | PN ---
Progress Note (short form) - Note Progress Note: Renal follow up for hypertension Pt seen and examined at the bedside no complaints bp has been improved no N/V/D Vital Signs Temperature 98.4 F 09/02/18 08:04 Pulse Rate 71 09/02/18 08:04 Respiratory Rate 18 09/02/18 08:04 Blood Pressure 149/83 09/02/18 08:04 O2 Sat by Pulse Oximetry (%) 100 08/29/18 04:00 Intake & Output 08/30/18 08/31/18 09/01/18 09/02/18 23:59 23:59 23:59 23:59 Output Total 550 Balance -550 NAD awake and alert Trace LE edema CBC, BMP 09/01/18 07:12 08/31/18 08:55 Current Medications Acetaminophen (Tylenol -) 650 mg PO Q4H PRN PRN Reason: PAIN LEVEL 1-5 Last Admin: 09/02/18 10:19 Dose: 650 mg Benzocaine (Americaine Ointment -) 1 applic TP PRN PRN PRN Reason: HEMORRHOIDS Last Admin: 08/29/18 15:52 Dose: 1 applic Benzocaine (Americaine 20% Leisenring -) 1 spray TP PRN PRN PRN Reason: HEMORRHOIDS/PERIANAL PAIN Last Admin: 08/30/18 07:48 Dose: 1 spray Bisacodyl (Dulcolax Suppository -) 10 mg RC PRN PRN PRN Reason: CONSTIPATION Docusate Sodium (Colace -) 100 mg PO BID [facility] Last Admin: 09/02/18 10:14 Dose: 100 mg Enoxaparin Sodium (Lovenox -) 40 mg SQ DAILY [facility] Last Admin: 09/02/18 10:14 Dose: 40 mg Hydrocortisone (Anusol 2.5% Hc Cream -) 1 applic TP BID [facility] Last Admin: 09/02/18 10:14 Dose: 1 applic Ibuprofen (Motrin -) 600 mg PO Q4H PRN PRN Reason: PAIN LEVEL 1 - 3 Last Admin: 09/02/18 10:18 Dose: 600 mg Labetalol HCl (Normodyne -) 200 mg PO Q6H PRN PRN Reason: HYPERTENSION Last Admin: 08/31/18 21:26 Dose: 200 mg Lidocaine HCl (Xylocaine 2% Jelly) 1 applic TP Q6H PRN PRN Reason: HEMORRHOIDS Last Admin: 09/01/18 21:36 Dose: 1 applic Methylergonovine Maleate (Methergine Injection -) 0.2 mg IM Q4H PRN PRN Reason: Excessive Bleeding (L&D) Nifedipine (Procardia Xl -) 30 mg PO DAILY [id number] Last Admin: 09/02/18 10:14 Dose: 30 mg Senna (Senna -) 2 tab PO HS PRN PRN Reason: CONSTIPATION Last Admin: 09/01/18 21:30 Dose: 2 tab Simethicone (Mylicon -) 80 mg PO Q4H PRN PRN Reason: GAS Last Admin: 09/02/18 10:18 Dose: 80 mg 33 year old woman with history of hypertension with hypertension # hypertension likely due to pre-eclampsia #Essential Hypertension # s/p BP is improved, will increase Nifepine ER to 60mg Daily Maintain low sodium diet follow up for BP monitoring in 1 week with PMD or our office out office contact information was provided discussed symptoms of hypotension and what do do if she felt dizzy or weak Minimize NSIAID use as much as possible Irineo Osorio DO
--- NOTE | 2018-09-02 14:41 | PATH ---
Surgical Pathology Report Patient Name: HANNA SIBLEY Med. Rec. #: [id number] /Age/Gender: 1985 (Age: 33) / F Account: [id number] Location: [facility] OBS/[facility] Taken: 08/29/2018 Received: 08/29/2018 Reported: 09/02/2018 Physicians: Pedro Rivas M.D. Specimen(s) Received PLACENTA Clinical History , chronic hypertension, term gestation, history of hemorrhoidectomy, hammertoe correction, GERD, superimposed preeclampsia Final Diagnosis PLACENTA, SECTION: 346 G THIRD TRIMESTER PLACENTA WITH TRIVASCULAR UMBILICAL CORD AND FOCAL ACUTE MILD CHORIOAMNIONITIS. Electronically Signed Stephanie Koenig M.D. Gross Description The specimen is received fresh labeled placenta and is a 346 gram, 15.0 x 13.0 x 2.7 cm. placenta with attached membranes and umbilical cord. The attached membranes are verdugo, translucent with focal opacities and insert marginally. The umbilical cord measures 34 cm. in length and averages 0.7 cm. in diameter. The cord inserts centrally. No true knots or strictures are identified. Cut surface of the umbilical cord reveals 3 vessels. The surface is espinosa-blue with minimal fibrin deposition and appropriate caliber vessels. The maternal surface is red-brown and intact. Sectioning reveals red-brown, spongy parenchyma. No lesions are identified. Hat Blocker sections are submitted in three cassettes as follows: 1- membrane rolls and umbilical cord; 2-3- full thickness sections of placenta. /09/01/201809/01/2018
== END 2018-09-02 11:48 | disposition home or self-care (01) | DRG 787 ==
LOC: JDEL 11:25 → JLDR 15:10 → J3W 08-29 03:30
PROVIDERS: ADMIT Obstetrics & Gynecology; ATTEND Obstetrics & Gynecology
PROC: 10D00Z1 Extraction of Products of Conception, Low, Open Approach (ICD-10-PCS; principal; 2018-08-28)
PROC: 3E0P7VZ Introduction of Hormone into Female Reproductive, Via Natural or Artificial Opening (ICD-10-PCS; 2018-08-28)
DX: O48.0 Post-term pregnancy (principal); O22.43 Hemorrhoids in pregnancy, third trimester; O10.02 Pre-existing essential hypertension complicating childbirth; O11.4 Pre-existing hypertension with pre-eclampsia, complicating childbirth; O69.81X0 Labor and delivery complicated by cord around neck, without compression, not applicable or unspecified; O76 Abnormality in fetal heart rate and rhythm complicating labor and delivery; O99.02 Anemia complicating childbirth; D64.9 Anemia, unspecified; Z3A.40 40 weeks gestation of pregnancy; Z37.0 Single live birth
CPT/HCPCS: 36415; 80053; 81003; 81015; 82570; 82977; 83010; 84156; 84550; 85025; 85044; 85610; 85730; 86593; 86850; 86900; 86901; 88307-TC; J0131

== ENCOUNTER 2022-07-28 04:14 | Day surgery (SDC) | payer OTHER ==
[2022-07-23 11:06] VITALS: BMI 22.3
[2022-07-28] MEDS ORDERED: ACETAMINOPHEN 325 MG TABLET (FP) PO PRN (14:19)
[2022-07-28] MEDS ORDERED: oxyCODONE HCL 5 MG TABLET PO PRN ×2 (14:19→14:32)
[2022-07-28] MEDS ORDERED: ONDANSETRON 4 MG/2 ML VIAL IVPUSH PRN ×2 (14:19→14:32)
[2022-07-28] MEDS ORDERED: LACTATED RINGERS SOLUTION 1,000 ML IV SCH (14:30)
[2022-07-28] MEDS ORDERED: IBUPROFEN 800 MG/8 ML IJ IVPB PRN (14:32)
[2022-07-28] MEDS ORDERED: IBUPROFEN 600 MG TABLET (FP) PO PRN (14:32)
[2022-07-28] MEDS ORDERED: PROPOFOL 20 ML ONE (14:36)
[2022-07-28] MEDS ORDERED: MIDAZOLAM HCL 2 MG/2 ML SINGLE DOSE VIAL ONE (14:36)
[2022-07-28] MEDS ORDERED: ELECTROLYTE-148 SOLN 1,000 ML IV SCH (14:45)
[2022-07-28 17:11] VITALS: RESP 20; TEMP 97.2
[2022-07-28 17:13] VITALS: BP 110/70; PULSE 72
== END 2022-07-28 16:50 | disposition home or self-care (01) ==
LOC: JASU-SURG 04:14
PROVIDERS: ATTEND Obstetrics & Gynecology
PROC: 0UPD7HZ Removal of Contraceptive Device from Uterus and Cervix, Via Natural or Artificial Opening (ICD-10-PCS; principal; 2022-07-28 15:00)
DX: Z30.432 Encounter for removal of intrauterine contraceptive device (principal)
CPT/HCPCS: 81025; 88300-TC; 94760